=== PATIENT | male | born 1980 | race Caucasian/White ===

== ENCOUNTER 2023-07-13 14:40 | Emergency (ER) | payer BC, SELFPAY ==
[2023-07-13 14:48] VITALS: BP 126/84
[2023-07-13 15:30] LABS: % Eosinophils 1.1 % (0-6); % Immature Granulocytes 0.8 % (0-0.5); % Lymphocytes 27.5 % (20.5-51.1); % Monocytes 5.5 % (1.7-9.3); % Neutrophils 64.1 % (42.2-75.2); Absolute Basophils 0.1 10^3/uL (0-0.2); Absolute Eosinophils 0.1 10^3/uL (0-0.7); Absolute Immature Granulocytes 0.1 10^3/uL (0-0.05); Absolute Lymphocytes 1.7 10^3/uL (1.2-3.4); Absolute Monocytes 0.3 10^3/uL (0.1-0.6); Absolute Neutrophils 3.9 10^3/uL (1.4-6.5); Hematocrit 43.9 % (39.0-52.0); Hemoglobin 15.4 g/dL (13.0-18.0); Mean Corp Hgb Conc. 35.1 g/dL (33.0-37.0); Mean Corpuscular Hgb 29.7 pg (27.0-31.0); Mean Corpuscular Volume 84.7 fL (80.0-94.0); Mean Platelet Volume 9.1 fL (7.4-10.4); Nucleated Red Blood Cells % 0 % (-); Platelet Count 227 10^3/uL (130-400); Red Blood Cell Count 5.18 10^6/uL (4.70-6.10); Red Cell Dist. Width 12.9 % (11.5-14.5); White Blood Cell Count 6.2 10^3/uL (4.8-10.8)
[2023-07-13 15:34] LABS: INR 1.11; PT 14.1 Sec (11.4-14.6)
[2023-07-13 15:36] LABS: ALT (SGPT) 26 U/L (0-50); AST (SGOT) 28 U/L (17-59); Albumin 4.4 g/dl (3.5-5.0); Alkaline Phosphatase 65 U/L (38-126); Blood Urea Nitrogen 17 mg/dl (9-20); Calcium 8.8 mg/dl (8.4-10.2); Carbon Dioxide 29 mmol/L (22-30); Chloride 105 mmol/L (98-107); Glucose 106 mg/dl (70-99); Potassium 4.1 mmol/L (3.5-5.1); Sodium 136 mmol/L (135-145); Total Bilirubin 0.8 mg/dl (0.2-1.3); eGFR > 60.00
[2023-07-13 15:39] VITALS: BP 124/81
[2023-07-13 15:43] VITALS: BMI 27.5
[2023-07-13 15:56] LABS: Troponin I < 0.012 ng/ml
[2023-07-13 16:00] VITALS: BP 110/72
[2023-07-13 16:13] LABS: NT-proBNP < 20.0 pg/ml
--- NOTE | 2023-07-13 16:56 | ED.GENMED ---
History of Present Illness
General
Chief Complaint: Heart Rate Problem
Source: patient
Exam Limitations: none
Time Seen by Provider: 07/13/23 16:07
Nursing documentation reviewed up to this point in time: agreed with
Travel History
Have you had any contact with someone who has COVID-19?: No
Do you have any symptoms of coronavirus? Fever > 100 degrees, chills, cough, shortness of breath, sore throat, loss of taste or smell, muscle aches, or headache?: No
History of Present Illness
History of Present Illness:
Patient presents to ED secondary to chest palpitations and shortness of breath, which woke the patient up from sleep, the past 2 nights. Denies any symptoms at rest. Denies fever or chills. Denies recent illness. Denies recent change in
medications or diet. Denies recent weight gain or weight loss. Patient states that he has had similar symptoms in the past, including obtaining sleep apnea test as an outpatient, which was normal. Denies family history early heart disease.
Denies leg pain or swelling. Denies back pain. Denies recent travel or surgery.
Past History
Past History
ED Past Medical History: Psychiatric (anxiety) and Other (DI, PE); Negative Asthma, HTN or Hypercholesterolemia
ED Past Surgical History: None
Social History
Tobacco: Smoker
Alcohol: Daily (Beer 6 and vodka)
Personal:
Living: alone
Employment: Employed (Self-employed)
Family History
Family History: Other (Noncontributory)
Review of Systems
Review of Systems
Allergies reviewed?: Yes
All Other Systems: ROS reviewed and negative except as documented in HPI and ROS
Constitutional: Reports no symptoms
EENT: Reports no symptoms
Respiratory: Reports trouble breathing
Cardiac: Reports palpitations; Denies chest pain
ABD/GI: Reports no symptoms
: Reports no symptoms
Musculoskeletal: Reports no symptoms
Skin: Reports no symptoms
Neurological: Reports no symptoms
Phy Exam
Physical Exam
Physical Exam:
Physical Exam
General: no apparent distress, not acutely ill. afebrile
Head: nc/at. eomi
Neck: supple. normal range of motion.
Heart: s1/s2 regular rate and rhythm, no murmur. equal radial pulses.
Lungs: no acute respiratory distress. clear bilaterally
Abdomen: normal bowel sounds. not tender.
Neuro: alert and oriented. no focal neurological deficits
Skin: no rash
Psychiatric: well kept. interactive and cooperative
Extremities: no edema. no calf tenderness.
Course
Orders/Labs/Results
Orders:
Orders
07/13/23 14:54
Electrocardiogram (*1) Urgent
Reason for Study: Chest Pain
EKG- Treatment ONCE
07/13/23 15:05
Complete Blood Count/With Diff Urgent
Comprehensive Metabolic Panel Urgent
NT-proBNP Urgent
Comment: ADD ON
Prothrombin Time Urgent
TSH Reflex To Free T4 Urgent
Comment: ADD ON
Troponin I Urgent
07/13/23 15:37
Add On- LAB Urgent
Tests Added?: pro BNP
07/13/23 16:57
Add On- LAB Urgent
Tests Added?: TSH to reflex free T4
Abnormal Lab Results
07/13/23
15:05
Abs Immat Gran (auto) 0.1 H 10^3/uL
(0-0.05)
Immature Gran % 0.8 H %
(0-0.5)
Glucose 106 H mg/dl
(70-99)
07/13/23 15:05
07/13/23 15:05
Vital Signs
Initial and Last Documented VS:
Initial Vital Signs
Temp Pulse Resp BP Pulse Ox
98.2 F 91 18 126/84 98
07/13/23 14:48 07/13/23 14:48 07/13/23 14:48 07/13/23 14:48 07/13/23 14:48
Last Documented Vital Signs
Temp Pulse Resp BP Pulse Ox
98.2 F 67 15 116/79 95
07/13/23 14:48 07/13/23 17:00 07/13/23 17:00 07/13/23 17:00 07/13/23 17:00
MDM/Problems Addressed
MDM/Problems Addressed:
Patient with an unremarkable workup in ED, including blood work and EKG. Patient remains asymptomatic during extended course observation ED. No arrhythmia or abnormal rhythm strip noted on the monitor during observation. Patient will be
discharged home in stable condition at this time, with recommendation to follow-up with PCP or cardiology as an outpatient, including potential Holter monitor as an outpatient.
*EKG
Interpreted by ED Provider?: Yes
EKG Intrepretation Date: 07/13/23
Heart Rate: 75
Rate: normal
Rhythm: sinus
[place]: normal axis
Interval: normal interval
QRS Pattern: normal QRS
*Critical Care Note
Total Time (30-74mins, 75-104mins- exclusive of procedures): Not Applicable
ED Attending Note
-
Portions of this chart may have been created with voice recognition software.� Occasional wrong word or��sound alike� substitutions may have occurred due to the inherent limitations of voice recognition software.
Discharge Plan
Departure
Patient Disposition: Home (Routine Discharge)
Date of Disposition: 07/13/23
Time of Disposition: 17:00
Patient with high blood pressure during this ER visit?: Yes
Condition: Good
Discharge Problem:
Heart palpitations
Instructions: Palpitations (DC)
Prescriptions:
No Action
desmopressin 0.1 MG tablet
0.3 mg PO BID
Referrals:
Joselo Dumas MD [Active] -
NONE,* [Active] -
Activity Restrictions/Additional Instructions:
As discussed, please follow-up with your primary care physician and/or referred recovery operator helper for further evaluation and treatment, including potential Holter monitoring as an outpatient.
Interventions
Interventions:
*Risk Screen - Suicide Last Done: 07/13/23 14:49
*General Assessment Last Done: 07/13/23 14:49
*Neglect/Abuse Screening Last Done: 07/13/23 14:49
ED- Fall Risk Assessment Last Done: 07/13/23 15:43
*ED COVID-19 Vaccine History Last Done: 07/13/23 15:43
*Nursing Disposition Last Done: 07/13/23 17:15
ED- Cardiac Assessment Last Done: 07/13/23 15:43
ED- Pulmonary Assessment Last Done: 07/13/23 15:43
Discharge Date and Time
Discharge Date/Time: 07/13/23 17:16
[2023-07-13 17:00] VITALS: BP 116/79
[2023-07-13 18:15] LABS: TSH Reflex To Free T4 0.86 uIU/ml (0.47-4.68)
== END 2023-07-13 17:16 | disposition home or self-care (01) ==
LOC: EMR 14:40
PROVIDERS: Emergency Medicine; EMERGENCY PHYSICIAN Emergency Medicine; FAMILY PHYSICIAN Internal Medicine
DX: R00.2 Palpitations (principal); R06.02 Shortness of breath; R42 Dizziness and giddiness; R20.0 Anesthesia of skin; M79.642 Pain in left hand; M79.641 Pain in right hand; R03.0 Elevated blood-pressure reading, without diagnosis of hypertension; F41.9 Anxiety disorder, unspecified; E23.2 Diabetes insipidus; F17.200 Nicotine dependence, unspecified, uncomplicated; Z86.711 Personal history of pulmonary embolism; Z86.16 Personal history of COVID-19
CPT/HCPCS: 99283; 80053; 83880; 84443; 84484; 85025; 85610; 93005

== ENCOUNTER 2023-08-20 14:20 | Emergency (ER) | payer BC, SELFPAY ==
[2023-08-20 14:29] VITALS: BP 111/82
[2023-08-20 14:51] LABS: % Basophils 0.9 % (0-2); % Eosinophils 1.3 % (0-6); % Immature Granulocytes 0.1 % (0-0.5); % Lymphocytes 24.2 % (20.5-51.1); % Neutrophils 67.5 % (42.2-75.2); Absolute Basophils 0.1 10^3/uL (0-0.2); Absolute Eosinophils 0.1 10^3/uL (0-0.7); Absolute Lymphocytes 1.7 10^3/uL (1.2-3.4); Absolute Monocytes 0.4 10^3/uL (0.1-0.6); Absolute Neutrophils 4.7 10^3/uL (1.4-6.5); Hematocrit 45.3 % (39.0-52.0); Mean Corp Hgb Conc. 35.3 g/dL (33.0-37.0); Mean Corpuscular Hgb 30.1 pg (27.0-31.0); Mean Corpuscular Volume 85.3 fL (80.0-94.0); Mean Platelet Volume 9.1 fL (7.4-10.4); Nucleated Red Blood Cells % 0 % (-); Platelet Count 225 10^3/uL (130-400); Red Blood Cell Count 5.31 10^6/uL (4.70-6.10); Red Cell Dist. Width 13.3 % (11.5-14.5)
[2023-08-20 15:05] LABS: ALT (SGPT) 22 U/L (0-50); AST (SGOT) 26 U/L (17-59); Albumin 4.8 g/dl (3.5-5.0); Alkaline Phosphatase 76 U/L (38-126); Blood Urea Nitrogen 12 mg/dl (9-20); Calcium 9.6 mg/dl (8.4-10.2); Carbon Dioxide 26 mmol/L (22-30); Chloride 105 mmol/L (98-107); Glucose 89 mg/dl (70-99); Potassium 4.5 mmol/L (3.5-5.1); Sodium 138 mmol/L (135-145); Total Bilirubin 1.5 mg/dl (0.2-1.3); Total Protein 7.7 g/dl (6.3-8.2); eGFR > 60.00
[2023-08-20 15:16] LABS: NT-proBNP 30.6 pg/ml; Troponin I < 0.012 ng/ml
[2023-08-20 16:35] VITALS: BP 119/85
--- NOTE | 2023-08-20 16:52 | ED.GENMED ---
History of Present Illness
General
Chief Complaint: Breathing Problem
Source: patient
Exam Limitations: none
Time Seen by Provider: 08/20/23 15:50
Nursing documentation reviewed up to this point in time: agreed with
Travel History
Have you had any contact with someone who has COVID-19?: No
Do you have any symptoms of coronavirus? Fever > 100 degrees, chills, cough, shortness of breath, sore throat, loss of taste or smell, muscle aches, or headache?: No
History of Present Illness
History of Present Illness:
42-year-old female with past ministry of previous PE was on anticoagulant for 6 months after having COVID 2 years ago, diabetes insipidus presenting to the emergency department today with concerns of shortness of breath intermittently and left-sided
lower chest discomfort over the past month that is gradually been worsening. Denies any specific cough no hemoptysis no leg swelling does occasionally feel lightheaded and shortness of breath. Denies recent fevers or upper respiratory symptoms.
Past History
Past History
ED Past Medical History: Psychiatric (anxiety) and Other (DI, PE); Negative Asthma, HTN or Hypercholesterolemia
ED Past Surgical History: None
Social History
Tobacco: Smoker
Alcohol: Daily (Beer 6 and vodka)
Personal:
Living: alone
Employment: Employed (Self-employed)
Family History
Family History: Other (Noncontributory)
Review of Systems
Review of Systems
Allergies reviewed?: Yes
All Other Systems: ROS reviewed and negative except as documented in HPI and ROS
Phy Exam
Physical Exam
Physical Exam:
GENERAL: Alert , in no apparent distress
EYE: pupils equal and reactive
NECK: Supple, no significant adenopathy.
ENT: o/p clr, mmm.
CARDIAC: Regular rate and rhythm .
LUNGS: Clear breath sounds bilaterally, no acute respiratory distress, no wheezes/rales/rhonchi
ABDOMEN: Soft, without focal tenderness, no r/g, no cvat
NEUROLOGICAL: Alert and oriented, no focal neuro deficits
SKIN: Warm and dry, skin intact.
MUSCULOSKELETAL: No edema, well perfused.
PSYCH: Normal and appropriate interaction.
I
Course
Orders/Labs/Results
Orders:
Orders
08/20/23 14:33
Electrocardiogram (*1) Urgent
Reason for Study: Other
Other Reason for Exam: Respiratory Distress
Cardiac Monitoring- Treatment ONCE
EKG- Treatment ONCE
IV Insert/Care/Rem.- Treatment PRN
CR Chest - 2 Views Urgent
Comment:
Reason For Exam: respiratory distress
O2 Therapy [RESP] Urgent
Titrate/Wean O2 to maintain O2 sat greater than (%): 93
Special Instructions: TO MAINTAIN CONTINUOUS O2 SATS >/= 93%
Pulse Ox/cont/shift [RESP] Urgent
Quantity: 1
Special Instructions: continuous pulse ox
08/20/23 14:41
Complete Blood Count/With Diff Urgent
Comprehensive Metabolic Panel Urgent
NT-proBNP Urgent
Troponin I Urgent
08/20/23 16:46
CT Chest Pe Study Urgent
Comment:
Reason For Exam: hx of PE a few years ago, CP, SOB
Abnormal Lab Results
08/20/23
14:41
Total Bilirubin 1.5 H mg/dl
(0.2-1.3)
08/20/23 14:41
08/20/23 14:41
Vital Signs
Initial and Last Documented VS:
Initial Vital Signs
Temp Pulse Resp BP Pulse Ox
98.4 F 79 18 111/82 98
08/20/23 14:29 08/20/23 14:29 08/20/23 14:29 08/20/23 14:29 08/20/23 14:29
Last Documented Vital Signs
Temp Pulse Resp BP Pulse Ox
98.4 F 79 18 116/80 96
08/20/23 14:29 08/20/23 14:29 08/20/23 14:29 08/20/23 17:00 08/20/23 17:30
MDM/Problems Addressed
MDM/Problems Addressed:
42-year-old male presenting to the emergency department today with concerns of left lower chest pain and shortness of breath initially intermittently but worsening over the past month. Does not have remote history of PE not currently
anticoagulated. Initial evaluation here with normal vital signs normal labs negative troponin level EKG normal and chest x-ray not emergent however the patient does have a history of PE concerning this plan to get CT PE scan for further assessment.
CT PE without emergent findings patient stable throughout ER stay no apparent life threats. He does have follow-up with cardiology and primary care doctor. Return precautions were given. Otherwise stable for outpatient management.
*Critical Care Note
Total Time (30-74mins, 75-104mins- exclusive of procedures): Not Applicable
ED Attending Note
-
Portions of this chart may have been created with voice recognition software.� Occasional wrong word or��sound alike� substitutions may have occurred due to the inherent limitations of voice recognition software.
Discharge Plan
Departure
Patient Disposition: Home (Routine Discharge)
Date of Disposition: 08/20/23
Time of Disposition: 18:51
Patient with high blood pressure during this ER visit?: No
Condition: Good
Covid-19: Not Applicable
Discharge Problem:
Chest pain
Instructions: Chest Pain (DC)
Prescriptions:
No Action
desmopressin 0.1 MG tablet
0.3 mg PO BID
Referrals:
Isiah Mcpherson MD [Family Provider] -
Activity Restrictions/Additional Instructions:
You came to the emergency department today with concerns of chest discomfort. Here your assessment was reassuring. Please follow closely with cardiology and your primary care doctor. Return to the emergency department for any worsening, new or
concerning symptoms.
Interventions
Interventions:
*Risk Screen - Suicide Last Done: 08/20/23 14:29
*General Assessment Last Done: 08/20/23 14:29
*Neglect/Abuse Screening Last Done: 08/20/23 14:29
ED- Cardiac Assessment Last Done: 08/20/23 16:40
ED- Pulmonary Assessment Last Done: 08/20/23 16:40
Discharge Date and Time
Print Language: BELIZEAN
[2023-08-20 17:00] VITALS: BP 116/80
[2023-08-20 19:06] VITALS: BP 116/74
== END 2023-08-20 19:08 | disposition home or self-care (01) ==
LOC: EMR 14:20
PROVIDERS: Emergency Medicine; EMERGENCY PHYSICIAN Emergency Medicine; FAMILY PHYSICIAN Internal Medicine
DX: R07.89 Other chest pain (principal); R06.02 Shortness of breath; E23.2 Diabetes insipidus; F41.9 Anxiety disorder, unspecified; F17.200 Nicotine dependence, unspecified, uncomplicated; Z86.711 Personal history of pulmonary embolism; Z86.16 Personal history of COVID-19
CPT/HCPCS: 99285; 71046; 71275; 80053; 83880; 84484; 85025; 93005; Q9967

== ENCOUNTER → 2023-09-02 12:43 | Outpatient (REF) | payer BC, SELFPAY | LOC: RCS 12:43 | PROVIDERS: ATTENDING PHYSICIAN Internal Medicine Cardiovascular Disease; FAMILY PHYSICIAN Internal Medicine | DX: R06.02 Shortness of breath (principal) | CPT/HCPCS: 93017; 93350 ==

== ENCOUNTER 2024-06-03 11:59 | Emergency (ER) | payer BC, SELFPAY ==
[2024-06-03 12:05] VITALS: BP 149/91
--- NOTE | 2024-06-03 14:16 | ED.GENMED ---
History of Present Illness
General
Chief Complaint: Back Pain
Source: patient
Exam Limitations: none
Time Seen by Provider: 06/03/24 14:16
History of Present Illness
History of Present Illness:
43-year-old male with 2 weeks of left mid upper back pain. Worse with lying down. No true pleuritic pain no shortness of breath. Has had some minimal chest discomfort with this. Denies cough fever. No blood in the urine. No dysuria or
frequency. No leg pain leg swelling. No twisting turning pain.
Past History
Past History
ED Past Medical History: Psychiatric (anxiety) and Other (DI, PE); Negative Asthma, HTN or Hypercholesterolemia
ED Past Surgical History: None
Social History
Tobacco: Smoker
Alcohol: Daily (Beer 6 and vodka)
Personal:
Living: alone
Employment: Employed (Self-employed)
Family History
Family History: Other (Noncontributory)
Review of Systems
Review of Systems
All Other Systems: Not applicable
Constitutional: Denies fever
Respiratory: Denies hemoptysis or trouble breathing
ABD/GI: Reports no symptoms
Phy Exam
Physical Exam
Physical Exam:
GENERAL: Alert and oriented in no apparent distress
EYE: Orbits normal.
NECK: Supple
CARDIAC: Regular rate and rhythm without any obvious murmurs.
LUNGS: Clear breath sounds,normal. No CVA tenderness. No point tenderness to the upper back
ABDOMEN: Soft, without focal tenderness or distention
NEUROLOGICAL: Alert and oriented , grossly non-focal
SKIN: Warm and dry, no rash or lesion, no discoloration, skin intact.
MUSCULOSKELETAL: No edema,no deformity.Good color
PSYCH: Normal and appropriate interaction.
Course
Orders/Labs/Results
Orders:
Orders
06/03/24 12:07
EKG [Electrocardiogram (*1)] Urgent
Reason for Study: Chest Pain
06/03/24 12:08
EKG- Treatment ONCE
06/03/24 14:25
CT Chest PE Study Urgent
Comment:
Reason For Exam: Left upper posterior back pain. History of PE
IV Insert/Care/Rem.- Treatment PRN
06/03/24 14:45
Complete Blood Count/With Diff Urgent
Comprehensive Metabolic Panel Urgent
Troponin I Urgent
Urinalysis Reflex To Culture Urgent
Date Specimen was Collected: 06/03/24
Time Specimen was Collected: 14:37
Abnormal Lab Results
06/03/24
14:45
Glucose 108 H mg/dl
(70-99)
Urine Ketones Trace A
(Negative)
Urine Bilirubin 1+ A
(Negative)
Urine Urobilinogen 2+ A
(Neg - 1+)
06/03/24 14:45
06/03/24 14:45
Vital Signs
Initial and Last Documented VS:
Initial Vital Signs
Temp Pulse Resp BP Pulse Ox
97.9 F 84 16 149/91 98
06/03/24 12:05 06/03/24 12:05 06/03/24 12:05 06/03/24 12:05 06/03/24 12:05
Last Documented Vital Signs
Temp Pulse Resp BP Pulse Ox
97.9 F 84 16 149/91 98
06/03/24 12:05 06/03/24 12:05 06/03/24 12:05 06/03/24 12:05 06/03/24 12:05
MDM/Problems Addressed
Differential Diagnosis Includes:
Differential of nontraumatic left mid to upper back pain worse with lying down include pericarditis, pulmonary emboli or pulmonary infarction, musculoskeletal. Doubt kidney issue. Will check urine however. Workup in progress.
*Radiology
Radiology exam reviewed: radiology read reviewed (No acute findings. Thyroid nodule)
*Pulse Oximetry
Patient hypoxic: no
*EKG
Interpreted by ED Provider?: Yes
Interpretation: normal
Comparison EKG: no changes
Heart Rate: 68
Rate: normal
Rhythm: sinus
[place]: normal axis
Interval: normal interval
QRS Pattern: normal QRS
Ischemia: no ischemia
*Critical Care Note
Total Time (30-74mins, 75-104mins- exclusive of procedures): Not Applicable
Data Reviewed
Review of Other/Old Records Reveals: Labs, Records and Testing
Update Note
Update Note:
Prolonged symptoms for over a week with nonexertional atypical chest pain. Back pain may be muscular pleuritic however all serious etiologies have been ruled out. Stable for discharge to follow-up
Copy of CT report given to patient for thyroid nodule follow-up
ED Attending Note
-
Portions of this chart may have been created with voice recognition software.� Occasional wrong word or��sound alike� substitutions may have occurred due to the inherent limitations of voice recognition software.
Discharge Plan
Departure
Patient Disposition: Home (Routine Discharge)
Date of Disposition: 06/03/24
Time of Disposition: 16:24
Patient with high blood pressure during this ER visit?: Yes
Discharge Problem:
Upper back pain/chest pain, Thyroid nodule
Instructions: Upper Back Pain (DC), Chest pain - Discharge instructions, BLOOD PRESSURE
Prescriptions:
No Action
desmopressin 0.1 MG tablet
0.3 mg PO BID
Referrals:
Isiah Mcpherson MD [Family Provider] - Follow up in 2-3 days
Activity Restrictions/Additional Instructions:
Follow-up ultrasound of your thyroid nodule.
Interventions
Interventions:
*Risk Screen - Suicide Last Done: 06/03/24 12:05
*Neglect/Abuse Screening Last Done: 06/03/24 12:05
Discharge Date and Time
Print Language: TURKISH
[2024-06-03 15:06] LABS: Urine Albumin Trace (Neg - Trace); Urine Bilirubin 1+ (Negative); Urine Character Clear (Clear); Urine Color Yellow; Urine Glucose Negative (Negative); Urine Ketone Trace (Negative); Urine Leukocyte Negative (Negative); Urine Nitrite Negative (Negative); Urine Occult Blood Negative (Negative); Urine Specific Gravity 1.015 (<1.030); Urine Urobilinogen 2+ (Neg - 1+); Urine pH 6.5 (5.0-9.0)
[2024-06-03 15:07] LABS: % Basophils 0.7 % (0-2); % Eosinophils 0.8 % (0-6); % Immature Granulocytes 0.1 % (0-0.5); % Lymphocytes 20.6 % (20.5-51.1); % Monocytes 6.9 % (1.7-9.3); % Neutrophils 70.9 % (42.2-75.2); Absolute Basophils 0.1 10^3/uL (0-0.2); Absolute Eosinophils 0.1 10^3/uL (0-0.7); Absolute Lymphocytes 1.5 10^3/uL (1.2-3.4); Absolute Monocytes 0.5 10^3/uL (0.1-0.6); Absolute Neutrophils 5.3 10^3/uL (1.4-6.5); Hemoglobin 16.4 g/dL (13.0-18.0); Mean Corp Hgb Conc. 34.9 g/dL (33.0-37.0); Mean Corpuscular Hgb 30.7 pg (27.0-31.0); Mean Platelet Volume 9.2 fL (7.4-10.4); Nucleated Red Blood Cells % 0 % (-); Platelet Count 206 10^3/uL (130-400); Red Blood Cell Count 5.34 10^6/uL (4.70-6.10); Red Cell Dist. Width 12.7 % (11.5-14.5); White Blood Cell Count 7.4 10^3/uL (4.8-10.8)
[2024-06-03 15:18] LABS: ALT (SGPT) 18 U/L (0-50); AST (SGOT) 25 U/L (17-59); Albumin 4.7 g/dl (3.5-5.0); Alkaline Phosphatase 64 U/L (38-126); Blood Urea Nitrogen 14 mg/dl (9-20); Carbon Dioxide 27 mmol/L (22-30); Chloride 99 mmol/L (98-107); Glucose 108 mg/dl (70-99); Potassium 4.4 mmol/L (3.5-5.1); Sodium 135 mmol/L (135-145); Total Protein 7.2 g/dl (6.3-8.2); eGFR > 60.00
[2024-06-03 15:28] LABS: Troponin I < 0.012 ng/ml
== END 2024-06-03 16:30 | disposition home or self-care (01) ==
LOC: EMR 11:59
PROVIDERS: EMERGENCY PHYSICIAN Emergency Medicine; FAMILY PHYSICIAN Internal Medicine
DX: M54.6 Pain in thoracic spine (principal); R07.89 Other chest pain; E04.1 Nontoxic single thyroid nodule; R03.0 Elevated blood-pressure reading, without diagnosis of hypertension; F41.9 Anxiety disorder, unspecified; E23.2 Diabetes insipidus; F17.200 Nicotine dependence, unspecified, uncomplicated; Z86.711 Personal history of pulmonary embolism
CPT/HCPCS: 99284; 71275; 80053; 81003; 84484; 85025; 93005; Q9967

== ENCOUNTER → 2024-06-09 09:45 | Outpatient (REF) | payer BC, SELFPAY | LOC: HWRAD 09:45 | PROVIDERS: ATTENDING PHYSICIAN Internal Medicine | DX: E04.1 Nontoxic single thyroid nodule (principal) | CPT/HCPCS: 76536 ==